=== PATIENT | male | born 1995 | race Caucasian/White ===

== ENCOUNTER 2018-07-01 14:51 | Observation (INO) | payer BC ==
[~2018-07-01] VITALS: Ht 183 cm; Wt 114.5 kg
[2018-07-01] VITALS (11 sets, daily range): BP systolic 127–143; BP diastolic 67–75; PULSE 70–108; TEMP 98.6–99.3
[~2018-07-01 14:51] MED LIST: CEPHALEXIN500 M1 PO; NORCO 325 MG-51 TAB PO; NORCO 325 MG-7.1 TAB PO; PHENERGAN 25 TA25 MG PO
[2018-07-01 18:03] LABS: BASO % 0.2 % (0.0-2.0); EOS # 0.1 (0.0-0.7); EOS % 0.7 % (0-4.0); GRAN # 5.2 (1.4-6.5); GRAN % 64.3 % (42.2-75.2); HEMATOCRIT 41.8 % (42.0-52.0); HEMOGLOBIN 14.9 g/dl (13.5-18.0); LYMPH # 2.2 (1.2-3.4); LYMPH % 27.3 % (20.0-51.0); MEAN CELL VOLUME 89 fl (80.0-100.0); MEAN CORPUSCULAR HEMOGLOBIN 32 pg (27.0-31.0); MEAN CORPUSCULAR HGB CONC 36 g/dl (33.0-37.0); MEAN PLATELET VOLUME 9.8 fl (7.4-10.4); MONO # 0.6 (0.1-0.6); PLATELET COUNT 233 K/mm3 (130-400)
[2018-07-01 18:14] LABS: CALCIUM 9.5 mg/dL (8.4-10.2); CREATININE, serum 0.9 mg/dL (0.66-1.25)
[2018-07-02 01:58] VITALS: BP 132/68; PULSE 114; TEMP 99.1
[2018-07-02 06:06] VITALS: PULSE 114; TEMP 96.9
[2018-07-02 08:14] VITALS: BP 133/71; PULSE 100; TEMP 98.1
[2018-07-02 11:08] VITALS: BP 133/73; PULSE 90; TEMP 98.2
[2018-07-02 16:01] VITALS: BP 133/73; PULSE 82; TEMP 98.5
== END 2018-07-02 18:45 | disposition home or self-care (01) ==
LOC: COL.RAD 14:51 → MEDICAL 16:00
PROVIDERS: Surgery
DX: K35.80 Unspecified acute appendicitis (principal)
CPT/HCPCS: G0378; G0379; J1100; J1170; J1885; J2405; J2543; J2704; J3010; J7042; J7120; Q9967